=== PATIENT | female | born 1970 | race Caucasian/White ===

== ENCOUNTER 2020-05-23 09:57 | Day surgery (SDC) | payer OTHER ==
[~2020-05-23] VITALS: Ht 160 cm; Wt 65.3 kg
[~2020-05-23 09:57] MED LIST: ALLEGRA ALLERGY60 MG PO; MOTRIN IB200 MG PO; MULTI VITAMIN1 EACH PO; PERCOCET 5-3251 EACH PO; SPIRONOLACTONE50 MG PO
[2020-05-23] MEDS ORDERED: VITAMIN D325 MC2 PO (10:19)
[2020-05-23] MEDS ORDERED: HAIR, SKIN & N1 EAC2 PO (10:19)
--- NOTE | 2020-05-23 11:01 | NUR ---
05/23/20 1101 [address] 1059 PATIENT ARRIVES TO PACU AWAKE BUT VERY DROWSY. SLEEPING WHEN NOT STIMULATED. ROOM AIR SATS >90%. RESP EVEN AND UNLABORED.
--- NOTE | 2020-05-28 16:02 | OR ---
[facility] [address] [place], [place] [address] Signed DATE OF OPERATION: 05/23/2020 SURGEON: Rachael Villegas MD PREOPERATIVE DIAGNOSES: Persistent bloating, fullness and substernal burning pain, improved with H2 dae. POSTOPERATIVE DIAGNOSIS: Normal-appearing esophagus, stomach, and duodenum. PROCEDURE: Esophagogastroduodenoscopy with biopsy. ANESTHESIA: Intravenous sedation, fentanyl 100 mcg and Versed 3 mg. INDICATION: This 49-year-old white woman is a patient of BELLA Dejesus and also Dr. Debbie Logan. She was seen by me in February and referral from Dr. Logan for gastroesophageal reflux type symptoms. Her symptoms of substernal burning and reflux symptoms have been going on for quite sometime. She is known to have long-standing sinusitis and was treated with antibiotics for that in the past. She has no associated dysphagia generally. No family history of gastroesophageal malignancy. Additionally, she has a fair amount of "gas and bloating." Her dominant symptoms appeared to be abdominal bloating and postprandial fullness. She notes fatty food is quite problematic for her. She does have family history of biliary disease in a sister. The patient was treated with Pepcid by Dr. Logan, which has been very helpful to her. She has undergone a gallbladder ultrasound, which was normal. She is now to undergo upper endoscopy to better characterize the problem specifically for peptic disease. She understands the risks of bleeding, infection, and perforation, and wished to proceed. FINDINGS: Esophagus, stomach, and duodenum were normal. The flap valve was quite good. She showed no evidence of H pylori on biopsies. Concern is maintained that underlying problems may be in fact related to biliary disease. DESCRIPTION OF PROCEDURE: The patient was brought to the endoscopy suite and given topical Hurricaine spray hypopharyngeal anesthesia and placed in lateral decubitus position. She was given Electronically Signed By: RACHAEL VILLEGAS MD 05/28/20 1602 PATIENT NAME: VERO WINSTON OPERATIVE REPORT DATE OF : 74 REPORT #: [id number] PHYSICIAN: RACHAEL VILLEGAS MD PCP: SANDRA ROJAS FLARER REPORT IS CONFIDENTIAL AND NOT TO BE RELEASED WITHOUT AUTHORIZATION [facility] [address] [place], [place] [address] Signed intravenous sedation to the point of slurred speech and nystagmus. Full cardiopulmonary monitoring was maintained. She was given intravenous sedation to point of slurred speech and nystagmus and a bite block was placed and an Olympus video upper endoscope was passed in the hypopharynx. The vocal cords appeared normal. The scope was advanced to the esophagus throughout its length, it was normal. Scope was passed to the stomach, which was also normal. Rugal folds were normal as was the antrum and the pylorus. The scope was passed through the pylorus into the duodenum, which was normal. Biopsies were taken of the duodenum to assess for celiac disease. The scope was withdrawn to the antrum and biopsies taken there and in the proximal stomach. The flap valve was quite optimal. CLOtest biopsies were obtained as well. The scope was withdrawn and distal esophageal mucosa affirmed to be normal. Biopsies were obtained there. Further withdrawal of scope showed no other findings. The patient was taken to the recovery room in good condition. CONCLUDING DIAGNOSIS: Though she has had some clinical improvement with H2 blockade and may well have peptic disease that is not manifest on upper endoscopy, I still have some concerns regarding the gallbladder. On that basis, we will organize for CCK-HIDA test to be obtained. We will see her back in the office following that study and review her progress, her pathology reports and the study and make a plan going forward. MD EBONI Merritt/OLVINL /[id number] cc: MD Sandra Ramos FNP Copies: DEBBIE LOGAN MD Electronically Signed By: RACHAEL VILLEGAS MD 05/28/20 1602 PATIENT NAME: VERO WINSTON OPERATIVE REPORT DATE OF : 74 REPORT #: [id number] PHYSICIAN: RACHAEL VILLEGAS MD PCP: SANDRA ROJAS REPORT IS CONFIDENTIAL AND NOT TO BE RELEASED WITHOUT AUTHORIZATION [address] [address] Signed SANDRA ROJAS ~ Electronically Signed By: RACHAEL VILLEGAS MD 05/28/20 1602 PATIENT NAME: VERO WINSTON OPERATIVE REPORT DATE OF : 74 REPORT #: [id number] PHYSICIAN: RACHAEL VILLEGAS MD PCP: SANDRA ROJAS REPORT IS CONFIDENTIAL AND NOT TO BE RELEASED WITHOUT AUTHORIZATION
== END 2020-05-23 11:50 | disposition home or self-care (01) ==
LOC: OPS 09:57 → DS 10:03 → OPS 11:30 → DS 06-02 11:30
PROVIDERS: ATTEND Surgery
PROC: 0DB78ZX Excision of Stomach, Pylorus, Via Natural or Artificial Opening Endoscopic, Diagnostic (ICD-10-PCS; 2020-05-23)
PROC: 0DB28ZX Excision of Middle Esophagus, Via Natural or Artificial Opening Endoscopic, Diagnostic (ICD-10-PCS; 2020-05-23)
PROC: 0DB38ZX Excision of Lower Esophagus, Via Natural or Artificial Opening Endoscopic, Diagnostic (ICD-10-PCS; 2020-05-23)
PROC: 0DB98ZX Excision of Duodenum, Via Natural or Artificial Opening Endoscopic, Diagnostic (ICD-10-PCS; principal; 2020-05-23 11:30)
DX: K20.90 Esophagitis, unspecified without bleeding (principal); K31.9 Disease of stomach and duodenum, unspecified; K21.9 Gastro-esophageal reflux disease without esophagitis; R32 Unspecified urinary incontinence; Z83.79 Family history of other diseases of the digestive system; Z88.2 Allergy status to sulfonamides; Z79.899 Other long term (current) drug therapy
CPT/HCPCS: 84703; 99153; G0500; J2250; J3010; J7121

== ENCOUNTER 2024-04-02 05:35 | Day surgery (SDC) | payer OTHER ==
[2024-03-21 16:49] VITALS: BP 110/76
[~2024-04-02] VITALS: Ht 160 cm; Wt 65.9 kg
[~2024-04-02 05:35] MED LIST changes: +ESTRADIOL1 EA11 TD; +HAIR, SKIN & N1 EAC2 PO; +LACTATED RINGER'S 1,000 ML IV SCH; +LEXAPRO10 MG PO; +MACRODANTIN100 MG PO; +NITROFURANTOIN100 MG PO; +OMEGA 3 1,0001 EACH PO; +OMEPRAZOLE20 MG PO; +ONE DAILY FOR1 EACH PO; +PROZAC20 MG PO; +RED YEAST RICE600 M1 PO; +VITAMIN D325 MC2 PO
[2024-04-02 06:05] VITALS: BP 110/65
[2024-04-02] MEDS ORDERED: CEFAZOLIN SODIUM 2 GM/20 ML SYR IV SCH (07:00)
[2024-04-02] MEDS ORDERED: IBLOOD GLUCOSE TEST STRIP 1 EA TEST VI PRN ×2 (07:00→08:15)
[2024-04-02] MEDS ORDERED: LIDOCAINE HCL 1% 5 ML SDV INJ ONE (07:00)
[2024-04-02] MEDS ORDERED: propofoL 200 MG/20 ML VIAL ONE (07:29)
[2024-04-02] MEDS ORDERED: ondansetron HCL 4 MG/2 ML VIAL ONE (07:29)
[2024-04-02] MEDS ORDERED: KETAMINE in NS 50 MG/5 ML SYR ONE (07:29)
[2024-04-02] MEDS ORDERED: DEXAMETHASONE SOD PHOS 4 MG/ML VIAL ONE (07:29)
[2024-04-02] MEDS ORDERED: OXYCODONE/APAP 5/325 TAB PO PRN (07:30)
[2024-04-02] MEDS ORDERED: MORPHINE SULFATE 4 MG/ML VIAL IV PRN (07:30)
[2024-04-02] MEDS ORDERED: ondansetron HCL 4 MG/2 ML VIAL IV PRN ×2 (07:30→08:15)
[2024-04-02] MEDS ORDERED: dexmedeTOMIDine HCl 200 MCG/2 ML VIAL ONE (07:39)
[2024-04-02] MEDS ORDERED: fentaNYL citrate 100 MCG/2 ML VIAL ONE (07:52)
[2024-04-02] MEDS ORDERED: NALOXONE HCL 0.4 MG SYR IV PRN (08:15)
[2024-04-02] MEDS ORDERED: fentaNYL citrate 50 MCG/ML SDV IV PRN (08:15)
[2024-04-02] MEDS ORDERED: KETOROLAC TROMETHAMINE 30 MG/ML VIAL IV PRN (08:15)
[2024-04-02 09:33] VITALS: BP 115/79
--- NOTE | 2024-04-02 09:38 | NUR ---
04/02/24 0938 Rosario Astorga 0830 PT ARRIVED IN PACU WIDE AWAKE AND C/O URGE TO VOID. 0833 PLACED ON BEDPAN. 0845 C/O BLADDER PAIN. 0849 TORADOL 15MG GIVEN IVP AND 15MG WASTED FROM 30MG VIAL. 0850 UP TO BATHROOM. 0900 VOIDED 400ML CLEAR PINKISH URINE. GOT DRESSED IN BATHROOM WITH ONE PERSON ASSIST. 0915 SITTING AT BEDSIDE AND ASKING MANY QUESTIONS NOT ON BULKAMID PRINT OUT. [address] GARZA AND ALL QUESTIONS ANSWERED. 0925 DC INSTRUCTIONS GIVEN. LEFT VIA W/C.
== END 2024-04-02 09:25 | disposition home or self-care (01) ==
LOC: OPS 05:35 → DS 05:35 → OPS 07:30
PROVIDERS: ATTEND Urology
PROC: 0TVD3ZZ Restriction of Urethra, Percutaneous Approach (ICD-10-PCS; principal; 2024-04-02 07:30)
DX: N39.3 Stress incontinence (female) (male) (principal); N32.81 Overactive bladder; N35.92 Unspecified urethral stricture, female; Z88.2 Allergy status to sulfonamides; Z88.8 Allergy status to other drugs, medicaments and biological substances
CPT/HCPCS: 00910; J0690; J1100; J1885; J2405; J2704; J3010; J3490; J7121; L8606

== ENCOUNTER 2024-06-27 05:55 | Day surgery (SDC) | payer OTHER ==
[2024-06-18 15:48] VITALS: BP 118/81
[~2024-06-27] VITALS: Ht 160 cm; Wt 68.2 kg
--- NOTE | ~2024-06-27 | OR ---
[facility] [address] [place], [place] [address] Draft DATE OF OPERATION: 06/27/2024 SURGEON: Debbie Logan MD PREOPERATIVE DIAGNOSES: 1. Pelvic pain. 2. Uterine fibroids. 3. History of endometriosis. POSTOPERATIVE DIAGNOSES: 1. Pelvic pain. 2. Uterine fibroids. 3. History of endometriosis. PROCEDURES: 1. Laparoscopically assisted vaginal hysterectomy with bilateral salpingectomy. 2. Cystoscopy. ANESTHESIA: General ET. ESTIMATED BLOOD LOSS: 50 mL. DRAINS: Prado catheter. INDICATIONS AND FINDINGS: The patient is a 53-year-old female, currently using the Mirena for control, who has been having increasing pelvic pain. She has a history of endometriosis in the past and did not tolerate oral contraceptives. She also has small fibroids. She desired definitive treatment. At the time of surgery, the exam under anesthesia revealed a top-normal sized uterus, it sounded to 11 cm. It was consistent with small fibroids by laparoscopy. The tubes and ovaries appeared normal. There was no evidence of any endometriosis. DESCRIPTION OF PROCEDURE: The patient was prepped and draped in the dorsal lithotomy position. A weighted speculum was placed. The anterior lip of the cervix was visualized and grasped with a single-tooth tenaculum. The endocervical canal was then dilated and the VCare cannula PATIENT NAME: VERO WINSTON OPERATIVE REPORT DATE OF : 74 REPORT #: [id number] PHYSICIAN: DEBBIE LOGAN MD PCP: ZHANNA ROJAS REPORT IS CONFIDENTIAL AND NOT TO BE RELEASED WITHOUT AUTHORIZATION [facility] [address] [place], [place] [address] Draft and inserted and the balloon inflated at the fundus. The tenaculum and speculum removed. The cup was fitted over the cervix and a locking cap was fitted in place. Attention was directed above. The infraumbilical area was injected with 0.5% Marcaine plain. An incision was made with a knife, and each layer was serially elevated and incised until the fascia was opened and identified. Stay sutures of 0-Vicryl were placed. The peritoneum was opened bluntly and a Ayala cannula placed and the balloon inflated. Placement of the scope confirmed proper positioning. CO2 was then introduced in the abdomen under low pressures. The planned procedure appeared appropriate on initial exam evaluation. The secondary ports were then placed. These were placed laterally slightly below the level of the umbilicus. These areas were injected with the Marcaine incision made with a knife and the trocars placed under direct vision. These were both 5 mm ports. Following this, the patient's left tube was identified and the excised. The mesosalpinx was serially coagulated and divided from the fimbriated end to the cornu and the specimen retrieved. The utero-ovarian pedicle was then serially coagulated and divided as well. The round ligament was divided and the anterior leaf of the peritoneum incised creating a partial bladder flap. The peritoneum was taken down posteriorly as well. The uterine vessels were then skeletonized and coagulated multiple times and divided. Further dissection was done both posteriorly and anteriorly. Attention was then directed to the patient's right side. The tube was excised in the same manner. Again the utero-ovarian pedicle was coagulated and divided. The round ligament was coagulated and divided. The peritoneum anteriorly was then incised completing the bladder flap. The peritoneum was taken down posteriorly as well. The uterine vessels were then skeletonized and coagulated and divided multiple times. Further dissection was done both posteriorly and anteriorly and at this point, it was felt that the specimen could be removed. The Sonicision device was used to separate the specimen from the vaginal cuff. Following this, the specimen was retrieved vaginally. A wet lap was placed vaginally inside a glove to allow the pneumoperitoneum to recur. Attention was directed above and the pelvis evaluated. Bleeding points were controlled with cautery using the LigaSure [place] device again. At this point, it was felt that the cuff could be closed and this was done vaginally. Attention was redirected below and the vaginal cuff angles were grasped with long Allis is. The cuff was closed with a running locking stitch of 0 Vicryl. Additional [id number] were required in the midportion for control of bleeding. Following this, the cuff appeared hemostatic. Again, attention was directed above and again it appeared hemostatic. Cystoscopy was done. The Prado catheter was removed after the patient had received IV fluorescein. The 30 degree scope was inserted and the bladder evaluated. There was no evidence of any bladder injury. Both ureteral orifices were easily identified and clear urine was seen to be freely coming through both of the ureteral orifices. There was no fluorescein seen at this point. The Prado catheter was then replaced after draining the bladder. Attention was directed again above and the abdomen reinflated. There were several bleeding points that were controlled with monopolar cautery. The pelvis was irrigated multiple times and at this point did appear hemostatic. Because of the wide PATIENT NAME: VERO WINSTONN OPERATIVE REPORT DATE OF : 74 REPORT #: [id number] PHYSICIAN: DEBBIE LOGAN MD PCP: ZHANNA ROJAS REPORT IS CONFIDENTIAL AND NOT TO BE RELEASED WITHOUT AUTHORIZATION [facility] [address] [place] [address] Draft dissection area, Tisseel was sprayed over the cuff to further aid in hemostasis. The instruments removed from the abdomen after allowing as much CO2 as possible to escape. The fascial incision was re-identified and closed in a running suture of 0-Vicryl. The 0-Vicryl was used to close the deep space as well. The skin incisions were closed with subcuticular sutures of 3-0 Vicryl Rapide. All sponge and needle counts were correct. She tolerated procedure well and was taken to the recovery room in good condition. MD JUAQUIN Ramos/ANTONY /[id number] Copies: ~ PATIENT NAME: VERO WINSTON OPERATIVE REPORT DATE OF : 74 REPORT #: [id number] PHYSICIAN: DEBBIE LOGAN MD PCP: ZHANNA ROJAS REPORT IS CONFIDENTIAL AND NOT TO BE RELEASED WITHOUT AUTHORIZATION
[2024-06-27 06:12] VITALS: BP 109/71
[2024-06-27] MEDS ORDERED: HYDROmorphone HCL 2 MG/ML VIAL ONE (06:54)
[2024-06-27] MEDS ORDERED: fentaNYL citrate 100 MCG/2 ML VIAL ONE (06:54)
[2024-06-27] MEDS ORDERED: KETAMINE in NS 50 MG/5 ML SYR ONE (06:54)
[2024-06-27] MEDS ORDERED: MAGNESIUM SULFATE 1 GM/2 ML VIAL ONE (06:55)
[2024-06-27] MEDS ORDERED: DEXAMETHASONE SOD PHOS 4 MG/ML VIAL ONE (06:55)
[2024-06-27] MEDS ORDERED: LIDOCAINE HCL 2% 5 ML SDV ONE (06:55)
[2024-06-27] MEDS ORDERED: dexmedeTOMIDine HCl 200 MCG/2 ML VIAL ONE (06:55)
[2024-06-27] MEDS ORDERED: SODIUM CHLORIDE 0.9% 40 ML IV ONE (06:55)
[2024-06-27] MEDS ORDERED: propofoL 200 MG/20 ML VIAL ONE (06:55)
[2024-06-27] MEDS ORDERED: ACETAMINOPHEN 1,000 MG/100 ML VIAL ONE (06:55)
[2024-06-27] MEDS ORDERED: ROCURONIUM BROMIDE 50 MG/5 ML SYR ONE (06:55)
[2024-06-27] MEDS ORDERED: ondansetron HCL 4 MG/2 ML VIAL ONE (06:55)
--- NOTE | 2024-06-27 06:56 | NUR ---
MOLD MAKER PLASTER IN TO TALK WITH PT.
[2024-06-27] MEDS ORDERED: LIDOCAINE HCL 1% 5 ML SDV INJ ONE (07:00)
[2024-06-27] MEDS ORDERED: METOCLOPRAMIDE HCL 10 MG/2 ML SDV IV SCH (07:00)
[2024-06-27] MEDS ORDERED: CEFAZOLIN SODIUM 2 GM/20 ML SYR IV SCH (07:00)
[2024-06-27] MEDS ORDERED: FAMOTIDINE 20 MG/ 2 ML VIAL IV SCH (07:00)
[2024-06-27] MEDS ORDERED: HEParin SOD (PORCINE) 5,000 UNIT/0.5 ML SYR SUB-Q SCH (07:00)
[2024-06-27] MEDS ORDERED: SCOPOLAMINE 1 MG/3 DAYS PATCH 1 EACH TDSY TD SCH (07:00)
[2024-06-27] MEDS ORDERED: IBLOOD GLUCOSE TEST STRIP 1 EA TEST VI PRN ×2 (07:00→09:15)
[2024-06-27] MEDS ORDERED: ePHEDrine sulfate 50 MG/ML AMP ONE (07:49)
[2024-06-27] MEDS ORDERED: FLUORESCEIN SODIUM 500 MG/5 ML ML ONE (08:58)
[2024-06-27] MEDS ORDERED: SEVOFLURANE 250 ML BTL INH ONE (09:02)
[2024-06-27] MEDS ORDERED: NALOXONE HCL 0.4 MG SYR IV PRN ×2 (09:15→10:00)
[2024-06-27] MEDS ORDERED: KETOROLAC TROMETHAMINE 30 MG/ML VIAL IV PRN (09:15)
[2024-06-27] MEDS ORDERED: fentaNYL citrate 50 MCG/ML SDV IV PRN (09:15)
[2024-06-27] MEDS ORDERED: ondansetron HCL 4 MG/2 ML VIAL IV PRN ×2 (09:15→10:00)
[2024-06-27] MEDS ORDERED: SUGAMMADEX SODIUM 200 MG/2 ML ML ONE (09:20)
[2024-06-27] MEDS ORDERED: PROCHLORPERAZINE EDISYLATE 10 MG/2 ML VIAL IV PRN (10:00)
[2024-06-27] MEDS ORDERED: METOCLOPRAMIDE HCL 10 MG/2 ML SDV IV PRN (10:00)
[2024-06-27] MEDS ORDERED: MAGNESIUM HYDROXIDE/AL HYDROX 30 ML CUP PO PRN (10:00)
[2024-06-27] MEDS ORDERED: FAMOTIDINE 20 MG TAB PO PRN (10:00)
[2024-06-27] MEDS ORDERED: ondansetron HCL 4 MG TAB PO PRN (10:00)
[2024-06-27] MEDS ORDERED: LACTATED RINGER'S 1,000 ML IV SCH (10:00)
[2024-06-27] MEDS ORDERED: MORPHINE SULFATE 10 MG/ML VIAL IV PRN (10:00)
--- NOTE | 2024-06-27 10:04 | NUR ---
06/27/24 Ezra4 Pretty Parham 2244 PT TO PACU SLEEPING ORAL AIRWAY IN PLACE. FRANKLIN IN PLACE AND PATENT DRAINING BRIGHT YELLOW URINE
[2024-06-27] MEDS ORDERED: ACETAMINOPHEN 500 MG TAB PO SCH (10:15)
[2024-06-27] MEDS ORDERED: HYDROmorphone HCL 2 MG TAB PO PRN (10:15)
[2024-06-27] MEDS ORDERED: LIDOCAINE 2% VISCOUS 6 ML SYR TOP ONE (10:15)
[2024-06-27 10:44] VITALS: BP 110/64
--- NOTE | 2024-06-27 11:02 | NUR ---
TRI 1040: PT IS BACK TO DS FROM PACU. IS AT THE BEDSIDE. CALL LIGHT WITHIN REACH. WATER AND JELLO ON BEDSIDE TABLE. WOULD LIKE A PAIN PILL, EDUCATED THAT LONG SHE TOLERATES JELLO SHE CAN GET A PAIN PILL.
--- NOTE | 2024-06-27 11:15 | NUR ---
HAS EATEN JEANGELAO C/O PAIN 01/22 DILAUDID GIVEN PO.
[2024-06-27 11:32] VITALS: BP 103/64
--- NOTE | 2024-06-27 11:36 | NUR ---
ASSISTED UP TO BR UNABLE TO VOID. RETURNED TO STRETCHER WARM BLANKETS ON.
[2024-06-27 12:40] VITALS: BP 106/74
--- NOTE | 2024-06-27 12:42 | NUR ---
UP TO BR VOIDS 50MLS BRIGHT YELLOW URINE. REQUESTS MOTRIN FOR ABD PAIN 01/22. DECLINES OFFER OF 2ND DILAUDID EARLIER.
--- NOTE | 2024-06-27 12:46 | NUR ---
HAS EATEN 2 APPLESAUCES A JELLO DRANK A CUP BROTH AND DRANK GLASS OF WATER.
[2024-06-27 13:32] VITALS: BP 105/66
[2024-06-27] MEDS ORDERED: IBUPROFEN 800 MG TAB PO SCH (14:00)
--- NOTE | 2024-06-29 14:52 | PATH ---
[facility] [address] [place], [place] [address] Signed SPECIMEN(S): A UTERUS, CERVIX, FALLOPIAN TUBES SPECIMEN SOURCE: A. UTERUS, CERVIX, FALLOPIAN TUBES CLINICAL HISTORY: Pelvic pain, endometriosis FINAL PATHOLOGIC DIAGNOSIS: Uterus, cervix and bilateral fallopian tube, resection: - Cervix: No pathologic diagnosis. - Uterus: - Adenomyosis. - Leiomyomas. - Negative for hyperplasia, atypia or malignancy. - Fallopian tubes: Histologically unremarkable fimbria and fallopian tubes NA MICROSCOPIC EXAMINATION: Histologic sections of all submitted blocks are examined by light microscopy. These findings, together with the gross examination, support the pathologic diagnosis. GROSS DESCRIPTION: The specimen, labeled and designated "Dedra Figueroa, per requisition cervix, uterus, bilateral fallopian tubes," is received in formalin and consists of 186 g, 9.8 cm fundus to cervix, 8.0 cm cornu to cornu, 5.6 cm anterior to posterior uterus with detached bilateral fallopian tubes. There are no ovaries present. The attached cervix measures 2.9 x 2.8 cm and has a 0.8 cm slitlike os. There is a central area of erosion surrounding the os. The endometrial canal measures 6.2 x 1.7 cm and has a red endometrium averaging 0.3 cm in thickness. The myometrium averages 2.2 cm and is grant-pink and trabecular. Within the myometrium there are multiple white whorled nodules ranging from 0.6 to 2.2 cm in greatest dimension. There are no additional masses or lesions present. The arbitrarily designated first fallopian tube measures 6 x 1 x 0.8 cm and lacks a fimbriated end. The serosal surfaces pink-purple and smooth. The second arbitrarily designated fallopian tube measures 5.9 x 0.9 x 0.8 cm and has an attached fimbriated end. The serosal surface is pink-purple PATIENT NAME: VERO WINSTON PATHOLOGY DATE OF : 74 REPORT #: [id number] PHYSICIAN: PAULA IGNACIO PCP: ZHANNA ROJAS BEAD WORKER SEWING REPORT IS CONFIDENTIAL AND NOT TO BE RELEASED WITHOUT AUTHORIZATION [facility] [address] [place], [place] [address] Signed and smooth. The specimen is serially sectioned revealing a pinpoint lumen. Sec Reporting Consultant sections are submitted as follows: Cassette Summary: (A1) anterior posterior cervix (A2) anterior and posterior endomyometrium (A3) white whorled nodules (A4) fallopian tube without fimbriated ends (A5) second fallopian tube, fimbriated ends totally embedded AA (under the direct supervision of a pathologist) The Gross Description was prepared using a voice recognition system. The report was reviewed for accuracy; however, sound-alike word errors, addition and/or deletions may occur. If there is any question about this report, please contact Client Services. ADDITIONAL NOTES: Immunohistochemical and/or in situ hybridization studies if performed in this case included appropriate positive controls that reacted as expected. This test was developed and its performance characteristics determined by [facility]. It has not been cleared or approved by the U.S. Food and Drug Administration. The FDA has determined that such clearance or approval is not necessary. This test is used for clinical purposes. It should not be regarded as investigational or for research. [facility] is certified under the Clinical Laboratory Improvement Amendments of 1988 (CLIA) as qualified to perform high complexity clinical laboratory testing. PERFORMING LABORATORY: Technical component was performed by [facility], [address] [place] [id number] (CLIA# [id number]). Professional interpretation was performed by [facility] - [facility], [address] [place] [id number] (CLIA#: [id number]). Diagnostician: Elie Barth MD Pathologist Electronically Signed 06/29/2024 Copies: PATIENT NAME: VERO WINSTONN PATHOLOGY DATE OF : 74 REPORT #: [id number] PHYSICIAN: PAULA PATHOLOGY PCP: ZHANNA ROJAS REPORT IS CONFIDENTIAL AND NOT TO BE RELEASED WITHOUT AUTHORIZATION [facility] [address] [place] [address] [place], [place] [address] Signed ~ PATIENT NAME: VERO WINSTON ZHANNA PATHOLOGY DATE OF : 74 REPORT #: [id number] PHYSICIAN: PAULA PATHOLOGY PCP: ZHANNA ROJAS REPORT IS CONFIDENTIAL AND NOT TO BE RELEASED WITHOUT AUTHORIZATION
== END 2024-06-27 13:45 | disposition home or self-care (01) ==
LOC: DS 05:55 → OPS 05:55 → DS 09:30 → OPS 13:45
PROVIDERS: ATTEND Obstetrics & Gynecology
PROC: 0UT9FZZ Resection of Uterus, Via Natural or Artificial Opening With Percutaneous Endoscopic Assistance (ICD-10-PCS; principal; 2024-06-27 07:30)
PROC: 0UT7FZZ Resection of Bilateral Fallopian Tubes, Via Natural or Artificial Opening With Percutaneous Endoscopic Assistance (ICD-10-PCS; 2024-06-27 07:30)
DX: D25.9 Leiomyoma of uterus, unspecified (principal); N80.03 Adenomyosis of the uterus; N39.46 Mixed incontinence; K58.2 Mixed irritable bowel syndrome; Z97.5 Presence of (intrauterine) contraceptive device; Z79.899 Other long term (current) drug therapy; Z88.1 Allergy status to other antibiotic agents; Z88.2 Allergy status to sulfonamides; Z88.8 Allergy status to other drugs, medicaments and biological substances
CPT/HCPCS: 00840; A9270; J0131; J0690; J1100; J1171; J1644; J2003; J2405; J2704; J2765; J3010; J3475; J3490; J7121